=== PATIENT | male | born 1965 | race Caucasian/White ===

== ENCOUNTER 2017-01-25 22:44 | Emergency (ER) | payer MEDICAID ==
[~2017-01-25] VITALS: Ht 167.6 cm; Wt 79.8 kg
--- NOTE | 2017-01-25 23:23 | NUR ---
DR. SANTOYO IS AT THE BEDSIDE.
[2017-01-25] MEDS ORDERED: METOCLOPRAMIDE HCL 10 MG/2 ML VIAL IM ONE (23:30)
[2017-01-25] MEDS ORDERED: CYCLOBENZAPRINE 10 MG TABLET PO ONE (23:30)
[2017-01-25] MEDS ORDERED: oxyCODONE/APAP (5/325 MG) 1 UDTAB TABLET PO ONE (23:30)
[2017-01-25] MEDS ORDERED: CYCLOBENZAPRINE 10 MG TABLET ONE (23:33)
[2017-01-25] MEDS ORDERED: oxyCODONE/APAP (5/325 MG) 1 UDTAB TABLET ONE (23:33)
[2017-01-25] MEDS ORDERED: METOCLOPRAMIDE HCL 10 MG/2 ML VIAL ONE (23:33)
--- NOTE | 2017-01-25 23:45 | NUR ---
PT REC'D MEDICATION ORDERED.
--- NOTE | 2017-01-26 00:19 | NUR ---
Patient discharged to home in stable condition. Written and verbal after care instructions given. Patient verbalizes understanding of instruction AND RX. PT'S IS DRIVING PT HOME. PT'S VSS. PT AMBULATED OUT WITH A STEADY GAIT.
[2017-01-26 00:34] VITALS: BP 133/85
== END 2017-01-26 00:19 | disposition home or self-care (01) ==
LOC: ER 22:46
DX: M54.32 Sciatica, left side (principal); G89.4 Chronic pain syndrome; D01.5 Carcinoma in situ of liver, gallbladder and bile ducts
CPT/HCPCS: 96372; 99283; A4606; J2765; Z7610

== ENCOUNTER 2017-06-17 19:48 | Emergency (ER) | payer SELFPAY ==
[~2017-06-17] VITALS: Ht 167.6 cm; Wt 97.1 kg
--- NOTE | 2017-06-17 20:00 | NUR ---
PT AMBULATORY TO ER BED 11. C/O DIFFUSE ABDOMIANL PAIN W/ N/V/D X 3 DAYS NOW. PT UNDERGOING CHEMO FOR CANCER. GOWNED AND PLACED ON MONITOR. STABLE VITALS. AWAITING MD KILGORE.
--- NOTE | 2017-06-17 20:26 | NUR ---
EARL ALCARAZ AT BEDSIDE FOR EVAL.
[2017-06-17] MEDS ORDERED: MORPHINE SULFATE INJ 2 MG/ML DISP.SYRIN IV ONE (20:30)
[2017-06-17] MEDS ORDERED: ONDANSETRON HCL/PF 4 MG/2 ML VIAL IVP ONE (20:30)
[2017-06-17] MEDS ORDERED: IV NS 0.9% 500 ML BAG IV ONE (20:30)
--- NOTE | 2017-06-17 20:35 | NUR ---
IV LINE STARTED BLOOD DRAWN AND SENT TO LAB.
[2017-06-17] MEDS ORDERED: MORPHINE SULFATE INJ 4 MG/ML DISP.SYRIN ONE (20:38)
[2017-06-17] MEDS ORDERED: ONDANSETRON HCL/PF 4 MG/2 ML VIAL ONE (20:38)
[2017-06-17 20:40] LABS: BASOPHILS # (AUTO) 0.1 /CMM (0.0-0.2); BASOPHILS % (AUTO) 1.1 % (0.0-2.0); EOSINOPHILS # (AUTO) 0.4 /CMM (0.0-0.7); HEMATOCRIT 45 % (39-51); HEMOGLOBIN 15.1 g/dL (13.5-17.5); LYMPHOCYTES # (AUTO) 3.2 /CMM (0.8-4.8); LYMPHOCYTES % (AUTO) 30.4 % (20.0-44.0); MEAN CORPUSCULAR HEMOGLOBIN 30 PG (26.0-33.0); MEAN CORPUSCULAR HGB CONC 34 g/dl (31.0-36.0); MEAN CORPUSCULAR VOLUME 88 fL (80-96); MONOCYTES # (AUTO) 0.8 /CMM (0.1-1.30); MONOCYTES % (AUTO) 7.8 % (2.0-12.0); NEUTROPHILS # (AUTO) 5.9 /CMM (1.8-8.9); NEUTROPHILS % (AUTO) 56.7 % (43.0-81.0); PLATELET COUNT (AUTO) 271 /CMM (150-450); RDW COEFFICIENT OF VARIATION 14.4 (11.5-15.0); RED BLOOD CELL COUNT(AUTO) 5.11 MIL/uL (4.5-6.0); WHITE BLOOD COUNT (AUTO) 10.4 K/uL (4.3-11.0)
[2017-06-17 20:50] LABS: CALCIUM, SERUM 9.3 mg/dL (8.5-10.1); POTASSIUM 3.8 mmol/L (3.5-5.1)
[2017-06-17 20:53] LABS: INR 0.98 (0.87-1.13); PROTHROMBIN TIME 10.2 SECS (9.5-12.7)
[2017-06-17 20:56] LABS: ALBUMIN 3.9 g/dL (3.4-5.0); BILIRUBIN,DIRECT 0.1 mg/dL (0.0-0.2); BILIRUBIN,TOTAL 0.4 mg/dL (0.2-1.0)
[2017-06-17 21:25] LABS: APPEARANCE,URINE Clear (CLEAR); BILIRUBIN,URINE Negative (NEGATIVE); BLOOD, URINE Negative Ery/uL (NEGATIVE); COLOR,URINE Yellow (YELLOW); KETONES,URINE Trace (NEGATIVE); LEUKOCYTE ESTERASE ,URINE Negative (NEGATIVE); NITRITE, URINE Negative (NEGATIVE); PH,URINE 5.5 (5.0-8.0); PROTEIN,URINE Negative (NEGATIVE); UGLUCOSE Negative (NEGATIVE); UROBILINOGEN,URINE 0.2 EU/dL (0.2)
--- NOTE | 2017-06-17 21:40 | NUR ---
U/S TECH AT BEDSIDE FOR LIVER ULTRASOUND.
[2017-06-17 21:42] LABS: BACTERIA,URINE None seen /HPF (None Seen); RBC,URINE 0-2 /HPF (0-2); SQUAMOUS EPITHELIAL CELL,UR Few /HPF (None Seen); WBC,URINE 0-2 /HPF (0-3)
--- NOTE | 2017-06-17 22:41 | NUR ---
Patient discharged to home in stable condition. Written and verbal after care instructions given. Patient verbalizes understanding of instruction.IV removed. Catheter intact and site benign. Pressure and 4x4 applied to site. No bleeding noted.
[2017-06-17 22:42] VITALS: BP 136/97
== END 2017-06-17 22:44 | disposition home or self-care (01) ==
LOC: ER 19:52
DX: R10.11 Right upper quadrant pain (principal); R11.2 Nausea with vomiting, unspecified; M54.30 Sciatica, unspecified side; R19.7 Diarrhea, unspecified; R16.0 Hepatomegaly, not elsewhere classified; Z90.49 Acquired absence of other specified parts of digestive tract; Z85.05 Personal history of malignant neoplasm of liver
CPT/HCPCS: 36415; 76705; 80048; 80076; 81001; 83690; 85025; 85730; 96374; 96375; 99285; A4606; J2270; J2405; J7040; Z7610; 81000-TC